=== PATIENT | male | born 1985 | race Caucasian/White ===

== ENCOUNTER 2021-08-28 15:49 | Emergency (ER) | payer MEDICAID ==
[~2021-08-28] VITALS: Ht 172.7 cm; Wt 70.0 kg
[2021-08-28] MEDS ORDERED: bacitracin 15gm ointment TP ONE (16:50)
[2021-08-28] MEDS ORDERED: LIDOcaine 1% W/epiNEPHrine 1:200,000 10ml vial IJ ONE (16:50)
[2021-08-28] MEDS ORDERED: TETanus/Pertussis (Acell)/Diphther VAC/PF (Tdap-Adult) 0.5ml syringe IMVAC ONE (16:50)
[2021-08-28] MEDS ORDERED: LIDOcaine 1% W/epiNEPHrine 1:100,000 20ml vial IJ ONE (17:25)
[2021-08-28] MEDS ORDERED: HYDR-3965 PO (17:51)
[2021-08-28] MEDS ORDERED: ondansetron 4mg rapidly disintigrating tab PO ONE (17:55)
[2021-08-28] MEDS ORDERED: HYDROcodone/acetaminophen 5mg/325mg tablet PO ONE (17:55)
[2021-08-28] MEDS ORDERED: ketorolac trometh. 30mg/ml inj. IM ONE (17:55)
[2021-08-28] MEDS ORDERED: ACET-1059 PO (18:49)
[2021-08-28 18:58] VITALS: BP 130/78
== END 2021-08-28 19:03 | disposition home or self-care (01) ==
LOC: ER 15:51
DX: S02.2XXA Fracture of nasal bones, initial encounter for closed fracture (principal); W19.XXXA Unspecified fall, initial encounter; Y93.89 Activity, other specified; Y92.89 Other specified places as the place of occurrence of the external cause; Y99.8 Other external cause status
CPT/HCPCS: 70450; 70486; 90471; 90715; 96372; 99284; J1885

== ENCOUNTER 2023-03-11 20:54 | Emergency (ER) | payer OTHER, MEDICAID ==
[~2023-03-11] VITALS: Ht 172.7 cm; Wt 64.0 kg
[2023-03-11 20:56] VITALS: TEMP 98
[2023-03-11 21:49] LABS: BASOPHILS % (AUTO) 0.5 % (0-1); EOSINOPHILS # (AUTO) 0.1 X10'3 (0-0.9); EOSINOPHILS % (AUTO) 0.8 % (0-6); HEMATOCRIT 46.8 % (42.0-52.0); HEMOGLOBIN 16.3 g/dl (14.0-17.9); LYMPHOCYTES # (AUTO) 3.1 X10'3 (1.1-4.8); MEAN CORPUSCULAR HEMOGLOBIN 33.4 PG (27.0-31.0); MEAN CORPUSCULAR HGB CONC 34.9 g/dL (33.0-36.5); MEAN CORPUSCULAR VOLUME 95.7 FL (78-98); MEAN PLATELET VOLUME 8.5 FL (7.4-10.4); MONOCYTES # (AUTO) 0.9 X10'3 (0-0.9); MONOCYTES % (AUTO) 9.9 % (2-12); NEUTROPHILS # (AUTO) 4.6 X10'3 (1.8-7.7); NEUTROPHILS % (AUTO) 52.8 % (42-75); PLATELET COUNT 335 X10'3 (140-440); RED BLOOD COUNT 4.89 X10'6 (4.70-6.10); RED CELL DISTRIBUTION WIDTH 13.2 % (11.5-14.5); WHITE BLOOD COUNT 8.7 X10'3 (4.5-11.0)
[2023-03-11 22:11] LABS: BILIRUBIN,URINE NEGATIVE (Neg); CLARITY,URINE CLEAR (Clear); COLOR,URINE YELLOW (Yellow); GLUCOSE, URINE NEGATIVE (Neg); KETONES,URINE TRACE mg/dl (Neg); LEUKOCYTE ESTERASE ,URINE NEGATIVE (Neg); NITRITES, URINE NEGATIVE (Neg); OCCULT BLOOD,URINE NEGATIVE (Neg); PH,URINE 8.5 (4.8-8.0); PROTEIN,URINE 100 mg/dl (Neg); UROBILINOGEN,URINE 0.2 E.U/dL (0.2-1.0)
[2023-03-11 22:15] LABS: UA COLLECTION TYPE CLN CATCH MIDSTREAM
[2023-03-11 22:18] LABS: ALANINE AMINOTRANSFERASE 50 U/L (12-78); ALBUMIN 4.4 G/DL (3.4-5.0); ALBUMIN/GLOBULIN RATIO 1.2 (1.1-1.5); ALKALINE PHOSPHATASE 95 IU/L (46-116); ANION GAP 16 (8-16); ASPARTATE AMINO TRANSFERASE 37 U/L (10-37); BILIRUBIN,TOTAL 0.3 MG/DL (0.1-1.0); BLOOD UREA NITROGEN 11 MG/DL (7-18); BUN/CREATININE RATIO 9.6 (10.0-20.0); CALCIUM 9.8 MG/DL (8.5-10.1); CHLORIDE 100 MMOL/L (99-107); CREATININE 1.14 MG/DL (0.60-1.10); ETHANOL < 10 MG/DL (<10); GLUCOSE 108 MG/DL (70-104); LIPASE < 50 U/L (73-393); POTASSIUM 3.5 MMOL/L (3.5-5.1); SODIUM 139 MMOL/L (135-145); TOTAL CARBON DIOXIDE 23.3 MMOL/L (24-32); TOTAL PROTEIN 8.2 G/DL (6.4-8.2); eCRCL 81 ML/MIN; eGFR 73 ML/MIN
[2023-03-11] MEDS ORDERED: LORazepam 2 mg/ml vial IV ONE (22:35)
[2023-03-11] MEDS ORDERED: ketorolac trometh. 30mg/ml inj. IV ONE (22:35)
[2023-03-11] MEDS ORDERED: ondansetron/PF 4mg/2ml inj IV ONE (22:35)
[2023-03-11 22:49] LABS: RBC,URINE 0-2 /HPF (0-2); WBC,URINE 0-4 /HPF (0-4)
[2023-03-11 22:50] LABS: AMORPHOUS PHOSPHATES 1+; BACTERIA,URINE NONE SEEN /HPF (Neg); SQUAMOUS EPITHELIAL CELL,UR NONE SEEN /LPF (FEW)
[2023-03-11 23:09] LABS: URINE AMPHETAMINE SCREEN NEGATIVE (Neg); URINE BARBITUATE SCREEN NEGATIVE (Neg); URINE BENZODIAZEPINES SCREEN NEGATIVE (Neg); URINE CANNABINOID SCREEN NEGATIVE (Neg); URINE COCAINE SCREEN NEGATIVE (Neg); URINE METHADONE SCREEN NEGATIVE (Neg); URINE OPIATE SCREEN NEGATIVE (Neg); URINE PHENCYCLIDINE SCREEN NEGATIVE (Neg)
[2023-03-11 23:13] VITALS: BP 135/83; PULSE 86; RESP 18; O2SAT 98
== END 2023-03-11 23:15 | disposition home or self-care (01) ==
LOC: ER 20:54
DX: F10.129 Alcohol abuse with intoxication, unspecified (principal); R06.4 Hyperventilation; Y90.9 Presence of alcohol in blood, level not specified
CPT/HCPCS: 36415; 80053; 80305; 80320; 81001; 83690; 85025; 96374; 96375; 99284; J1885; J2060; J2405